=== PATIENT | male | born 2000 | race African-American/Black ===

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

== ENCOUNTER 2022-05-31 15:32 | Emergency (ER) | payer BC ==
[~2022-05-31] VITALS: Ht 167.6 cm; Wt 78.0 kg
[2022-05-31 15:44] VITALS: BP 138/75
[2022-05-31] MEDS ORDERED: DOXY100T2 MT (17:07)
[2022-05-31] MEDS ORDERED: IBUP-2029 MT (17:07)
== END 2022-05-31 17:14 | disposition home or self-care (01) ==
LOC: ER 15:32
DX: L02.212 Cutaneous abscess of back [any part, except buttock and flank] (principal)
CPT/HCPCS: 99281